=== PATIENT | male | born 1985 | race Caucasian/White ===

== ENCOUNTER 2021-03-20 08:04 | Day surgery (SDC) | payer BC ==
[~2021-03-20] VITALS: Ht 185.4 cm; Wt 103.9 kg
[~2021-03-20 08:04] MED LIST: ALBUTEROL SULFATE 2.5 MG/0.5 ML INH NEB SOLN INH ONE; LIDOCAINE 4% INJ 5ML AMP INH ONE; LR 1,000 ML IV ONE
[2021-03-20 08:42] LABS: PLATELET COUNT, AUTOMATED 268 10^3/uL (150-450)
[2021-03-20] MEDS ORDERED: LIDOCAINE 1% SDV 30ML VIAL As Ordered ONE (08:54)
[2021-03-20] MEDS ORDERED: LIDOCAINE VISCOUS 2% SOLN 15ML UDC As Ordered ONE (08:55)
[2021-03-20 08:56] LABS: INR 0.87; PROTHROMBIN TIME 12.2 SECONDS (12.7-14.5)
[2021-03-20 08:57] LABS: PARTIAL THROMBOPLASTIN TIME 28.1 SECONDS (25.9-37.0)
[2021-03-20] MEDS ORDERED: propofoL 200 MG/20 ML VIAL As Ordered ONE (08:58)
[2021-03-20] MEDS ORDERED: dexameTHASONE 4 MG/ML 1ML VIAL (J1100 PER 1MG) As Ordered ONE (08:58)
[2021-03-20] MEDS ORDERED: ONDANSETRON 4MG/2ML VIAL As Ordered ONE (08:58)
[2021-03-20] MEDS ORDERED: LIDOCAINE 2% 100MG/5ML SDV (FOR ANES.) As Ordered ONE (08:58)
[2021-03-20] MEDS ORDERED: ROCURONIUM BROMIDE 50 MG/5 ML VIAL As Ordered ONE (08:58)
[2021-03-20] MEDS ORDERED: MIDAZOLAM INJ 2MG/2ML VIAL (J2250 PER 1MG) As Ordered ONE (08:59)
[2021-03-20] MEDS ORDERED: fentaNYL 100 MCG/2 ML INJECTION (J3010) As Ordered ONE (08:59)
[2021-03-20] MEDS ORDERED: SUGAMMADEX SODIUM 500 MG/5 ML VIAL (BRIDION) As Ordered ONE (09:48)
[2021-03-20] MEDS: CETACAINE SPRAY 5GM As Ordered ONE ×2 (10:00→10:05)
[2021-03-20] MEDS: EPINEPHrine 1MG/10ML SYRINGE 1.5IN As Ordered ONE ×2 (10:04→10:05)
--- NOTE | 2021-03-20 10:48 | ROOR ---
Patient Name: Ted Ureña Procedure Date: 03/20/2021 8:52 AM Date of : 1985 Admit Type: Outpatient Age: 35 Note Status: Finalized Attending MD: EMA ROJAS MD Procedure: Bronchoscopy Indications: Mediastinal adenopathy Providers: EMA ROJAS MD (Doctor) Referring MD: 1. NO/Unknown PCP 1. NO/Unknown PCP, Admin. (Referring MD) Requesting Physician: Medicines: Lidocaine 4% via nebulizer with Albuterol 2.5 mg, General Anesthesia Complications: No immediate complications Procedure: Pre-Anesthesia Assessment: - A History and Physical has been performed. The patient's medications, allergies and sensitivities have been reviewed. - The risks and benefits of the procedure and the sedation options and risks were discussed with the patient. All questions were answered and informed consent was obtained. - In preparation for the procedure, the patient's INR, platelet count and PTT were reviewed. - Patient identification and proposed procedure were verified prior to the procedure by the physician, the nurse, the anesthesiologist, the merchandise distributor and the hvac technician residential. The procedure was verified in the procedure room. The Bronchoscope was introduced through the mouth, via the endotracheal tube (the patient was intubated for the procedure) and advanced to the trachea. The patient tolerated the procedure well. The procedure was accomplished without difficulty. Findings: The endotracheal tube is in good position. The visualized portion of the trachea is of normal caliber. The alycia is sharp. The tracheobronchial tree was examined to at least the first subsegmental level. Bronchial mucosa and anatomy are normal; there are no endobronchial lesions, and no secretions. An endobronchial ultrasound endoscope was utilized in order to assist with fine needle aspiration in the subcarinal area. Transbronchial needle aspirations of a lymph node were performed in the subcarinal area using an Olympus EBUS-TBNA 21 gauge needle and sent for routine cytology. The procedure was guided by ultrasound. Bronchoalveolar lavage was performed in the RUL posterior segment (B2) and in the RML medial segment (B5) of the lung and sent for cell count, bacterial culture, viral smears & culture, and fungal & AFB analysis and cytology and bacterial, AFB and fungal analysis. 40 mL of fluid were instilled. The return was cloudy. Multiple specimens were obtained and pooled into one specimen, which was sent for analysis. Washings were obtained in the right upper lobe, in the right middle lobe, in the right lower lobe, in the left upper lobe and in the left lower lobe and sent for cell count, bacterial culture, viral smears & culture, and fungal & AFB analysis and cytology and bacterial, AFB and fungal analysis. The return was bloody. Multiple specimens were obtained and pooled into one specimen, which was sent for analysis. Impression: - Mediastinal adenopathy - The airway examination was normal. - Bronchoalveolar lavage was performed. - Washings were obtained. - Endobronchial ultrasound was performed. - A transbronchial needle aspiration was performed. Recommendation: - Discharge patient to home (ambulatory). - Await test results. Procedure Code(s): --- Professional --- 23727, Bronchoscopy, rigid or flexible, including fluoroscopic guidance, when performed; with transbronchial needle aspiration biopsy(s), trachea, main stem and/or lobar bronchus(i) 22005, Bronchoscopy, rigid or flexible, including fluoroscopic guidance, when performed; with bronchial alveolar lavage 05967, Bronchoscopy, rigid or flexible, including fluoroscopic guidance, when performed; with transendoscopic endobronchial ultrasound (EBUS) during bronchoscopic diagnostic or therapeutic intervention(s) for peripheral lesion(s) (List separately in addition to code for primary procedure[s]) CPT copyright 2019 [employer]. All rights reserved. The codes documented in this report are preliminary and upon patron attendant review may be revised to meet current compliance requirements. EMA ROJAS MD 03/20/2021 10:48:03 AM Number of Addenda: 0 Note Initiated On: 03/20/2021 8:52 AM
[2021-03-20] MEDS ORDERED: LR 1,000 ML IV SCH (10:55)
[2021-03-20] MEDS ORDERED: ONDANSETRON 4MG/2ML VIAL IV PRN (10:55)
[2021-03-20] MEDS ORDERED: fentaNYL 100 MCG/2 ML INJECTION (J3010) IV PRN (10:55)
[2021-03-20] MEDS ORDERED: PERCOCET 5MG/325MG TAB PO PRN (10:55)
[2021-03-20] MEDS ORDERED: METOCLOPRAMIDE INJ 10MG/2ML VIAL (J2765 PER 1) IV PRN (10:55)
[2021-03-20 11:25] VITALS: BP 128/80
== END 2021-03-20 11:27 | disposition home or self-care (01) ==
LOC: M SDC 08:04
PROVIDERS: ATTEND Internal Medicine Pulmonary Disease
DX: R59.0 Localized enlarged lymph nodes (principal); R07.9 Chest pain, unspecified; Z87.891 Personal history of nicotine dependence; F12.10 Cannabis abuse, uncomplicated
CPT/HCPCS: 31624; 31629; 31654; 36415; 85027; 85610; 85730; 87070; 87102; 87116; 87205; 87206; 87385; 88104; 88108; 88173; 88305; 88313; J1100; J2250; J2405; J3010